=== PATIENT | female | born 1975 | race African-American/Black ===

== ENCOUNTER 2018-05-17 20:08 | Emergency (ER) | payer BC ==
[~2018-05-17] VITALS: Ht 167.6 cm; Wt 93.0 kg
[~2018-05-17 20:08] MED LIST: CIPRO500 MG OR; NAPROSYN500 MG OR; TRAMADOL HCL50 MG OR; ULTRAM50 M1 PO; ZOFRAN ODT4 MG PO
[2018-05-17] MEDS ORDERED: HYDROCHLOROT12.5 MG PO (20:18)
[2018-05-17] MEDS ORDERED: KEFLEX500 M1 PO (20:34)
[2018-05-17] MEDS ORDERED: PERCOCET 5/325M1 TAB PO (20:34)
[2018-05-17 20:43] VITALS: BP 182/99
== END 2018-05-17 20:41 | disposition home or self-care (01) | DRG 603 ==
LOC: ED 20:08
DX: L02.416 Cutaneous abscess of left lower limb (principal)